=== PATIENT | male | born 1975 | race Two or more races ===

== ENCOUNTER 2024-10-03 14:28 | Emergency (ER) | payer MEDICAID, SELFPAY ==
[2024-10-03 15:12] VITALS: BP 154/90; PULSE 73; RESP 18; TEMP 36.8; O2SAT 96
--- NOTE | 2024-10-03 17:13 | PD.EDRME ---
Rapid Medical Screening Exam E Arrival date/time: 10/03/24 14:28 This is a 48-year-old male that comes with a family member to help with interpretation. Patient only speaks Luxembourgish. Patient comes in with complaints of mass to right buttock around his anus. Patient states that he has had it there for about 3 months and over the last week has been hurting him a lot. It is hard for him to get comfortable and he cannot sit. Patient denies fever, chills, nausea, vomiting, diarrhea. Patient denies past medical history. I have greeted and performed a focused initial assessment of this patient. Initial appropriate labs ordered at this time. A comprehensive ED assessment and evaluation of the patient and analysis of all test and completion of medical decision making process will be conducted by additional ED provider. Chief Complaint: General Adult/Misc Complain Time Seen by Provider: 10/03/24 17:01 Vital signs: Vital Signs Temperature 98.3 F 10/03/24 15:12 Pulse Rate 73 10/03/24 15:12 Respiratory Rate 18 10/03/24 15:12 Blood Pressure 154/90 H 10/03/24 15:12 Pulse Oximetry (%) 96 10/03/24 15:12 Oxygen Delivery Method Room Air 10/03/24 15:12
[2024-10-03 18:12] LABS: Basophils # (Auto) 0.1 Thou/mm3 (0.0-0.2); Basophils % (Auto) 1 % (0-2.5); Eosinophils # (Auto) 0.1 Thou/mm3 (0.0-0.5); Eosinophils % (Auto) 1 % (0-10); Hematocrit 49.2 % (41.0-53.0); Hemoglobin 16.2 g/dL (13.5-16.0); Immature Granulocytes % (Auto) 1 % (0-0); Immature Granulocytes Auto 0.13 Thou/mm3 (0.00-0.00); Lymphocytes # (Auto) 2.7 Thou/mm3 (1.0-4.8); Lymphocytes % (Auto) 23 % (10-50); Mean Corpuscular HGB Conc 32.9 g/dl (31.0-37.0); Mean Corpuscular Hemoglobin 27.4 pg (25.0-35.0); Mean Corpuscular Volume 83 fL (80-100); Monocytes # (Auto) 1.2 Thou/mm3 (0.0-0.8); Monocytes % (Auto) 10 % (0-12); Neutrophils # (Auto) 7.7 Thou/mm3 (1.8-7.7); Neutrophils % (Auto) 65 % (37-80); Nucleated Red Blood Cell % 0 /100 WBC (0); Platelet Count 290 Thou/mm3 (140-440); RDW Standard Deviation 39.7 fL (35.1-43.9); Red Blood Count 5.92 Miln/mm3 (4.50-5.90)
[2024-10-03 18:29] LABS: Alanine Aminotransferase 39 U/L (10-49); Albumin/Globulin Ratio 1.9 (1.2-2.2); Alkaline Phosphatase 82 U/L (46-116); Anion Gap 7 (7-16); Aspartate Amino Transferase 23 U/L (0-34); BUN/Creatinine Ratio 13 Ratio (12-20); Bilirubin,Total 0.4 mg/dL (0.3-1.2); Blood Urea Nitrogen 13 mg/dL (9-23); C-Reactive Protein 1.3 mg/dL (0.0-0.9); Calcium 9.8 mg/dL (8.3-10.6); Calcium (Corrected) 9.8 mg/dL (8.5-10.1); Carbon Dioxide 30.1 mMol/L (20.0-31.0); Chloride 101 mMol/L (98-107); Globulin 2.6 gm/dL (2.3-3.5); Glucose 76 mg/dL (74-106); Osmolality,Calculated 274 (275-295); Potassium 4.6 mMol/L (3.4-5.1); Sodium 138 mMol/L (136-145); Total Protein 7.6 gm/dL (5.7-8.2); eGFR > 60 See Note
[2024-10-03 19:35] VITALS: BP 139/88; PULSE 71; RESP 22; TEMP 36.6; O2SAT 95
--- NOTE | 2024-10-03 21:06 | XR_ITS ---
Examination: CT abdomen and pelvis without contrast. Coronal 3-D reconstructions. Sagittal 2-D reconstructions. Date and time of exam:October 03, 2024 2115 hrs. Indications: Painful venous fever abdominal pain beginning 2 days ago CTDI: vol (mGy): 7.77 DLP: (mGycm): 466 Technique: Axial images of the abdomen have been obtained, 3 mm slice thickness Intravenous contrast material has not been administered. Low dose protocols were performed. One or more of the following dose reduction techniques were used; automated exposure control, adjustment of the mA and/or KV according to patient size, use of iterative reconstruction technique. Findings: No focal liver or splenic lesions No gallstones No pancreatic or adrenal mass No renal or ureteral calculi, no hydronephrosis Aorta normal size Normal appendix No bowel obstruction No diverticulitis Urinary bladder intact No prostatomegaly Posterior right perianal infectious change, 30 x 12 mm, without contrast difficult to assess for abscess Osseous structures are intact Impression: Posterior right perianal infectious change 30 x 12 mm, without contrast difficult to assess for abscess at this site
[2024-10-04 00:34] VITALS: BP 143/82; PULSE 89; RESP 20; TEMP 36.7; O2SAT 93
--- NOTE | 2024-10-04 01:31 | PD.EDADULT ---
ED General RME/HPI General Chief complaint: General Adult/Misc Complain Stated complaint: PAINFUL INTERNAL ANUS PIMPLES ; CAN'T SIT; FEVER Time Seen by Provider: 10/03/24 17:01 Source: patient and family Arrival date/time: 10/03/24 14:28 Limitations: language barrier (Frisian; translation services offered) RME / HPI RME / HPI narrative: 10/03/24 14:28 This is a 48-year-old male that comes with a family member to help with interpretation. Patient only speaks Frisian. Patient comes in with complaints of mass to right buttock around his anus. Patient states that he has had it there for about 3 months and over the last week has been hurting him a lot. It is hard for him to get comfortable and he cannot sit. Patient denies fever, chills, nausea, vomiting, diarrhea. Patient denies past medical history. I have greeted and performed a focused initial assessment of this patient. Initial appropriate labs ordered at this time. A comprehensive ED assessment and evaluation of the patient and analysis of all test and completion of medical decision making process will be conducted by additional ED provider. --- DR. JACK MAIN ED EVALUATION: 48-year-old Frisian-speaking male accompanied by son who presents to the ED for complaints of pain to right inner buttock for the past 3 months, significantly worsening tonight. Patient notes difficulty sitting. He has not sought medical attention prior to this visit. No bloody stools. No fever. No recent weight loss. No medications, past medical history, illnesses. No history of HIV or anal intercourse. Related Data Allergies Allergy/AdvReac Type Severity Reaction Status Date / Time Iodinated Contrast Media Allergy Verified 10/06/24 19:15 Review of Systems Review of Systems Systems Reviewed: All systems reviewed, normal except as documented Past Medical History Social History SMOKING STATUS: Never smoker ED Exam General Limitations: Present language barrier (Frisian; translation services offered) General appearance: Present alert and in no apparent distress Head Head exam: Present atraumatic, normocephalic and normal inspection Eye Eye exam: Present normal appearance, PERRL and EOMI ENT ENT exam: Present normal exam, normal oropharynx, TM's normal bilaterally and normal external ear exam Neck Neck exam: Present normal inspection and full ROM Chest Chest inspection: Present normal inspection and symmetric chest wall rise Respiratory Respiratory exam: Present normal lung sounds bilaterally Cardiovascular Cardiovascular exam: Present regular rate, normal rhythm and normal heart sounds Abdominal Exam Abdominal exam: Present soft and normal bowel sounds Rectal Exam Rectal exam: Present other (There is 1x2cm hardness on right inner buttock, not involving the rectal area. Mild erythema. No pus. Mildly tender.) Extremities Exam Extremities exam: Present normal inspection and full ROM Back Exam Back exam: Present normal inspection and full ROM Neurological Exam Neurological exam: Present alert, oriented X3 and CN II-XII intact Psychiatric Psychiatric exam: Present normal affect and normal mood; Absent depressed Skin Skin exam: Present warm, dry, intact and normal color Course Quality Measures none Orders Category Date Time Status CT abdomen pelvis wo con Stat Exams 10/03/24 21:06 Completed CBC Stat Lab 10/03/24 17:30 Completed CRP [C-Reactive Protein] Stat Lab 10/03/24 17:30 Completed Comprehensive Metabolic Panel Stat Lab 10/03/24 17:30 Completed Clindamycin [Cleocin] Med 10/04/24 01:49 Discontinued 300 mg PO X1 ONE Ibuprofen Tab [Motrin Tab] Med 10/04/24 01:50 Discontinued 600 mg PO X1 ONE Vital Signs Vital signs: Vital Signs Temperature 98.3 F 10/03/24 15:12 Pulse Rate 73 10/03/24 15:12 Respiratory Rate 18 10/03/24 15:12 Blood Pressure 154/90 H 10/03/24 15:12 Pulse Oximetry (%) 96 10/03/24 15:12 Oxygen Delivery Method Room Air 10/03/24 15:12 [facility] Patient data External records reviewed:: [facility] previous records and None Clinical information provided by:: family (Son is translating in Frisian) Social determinants that could affect healthcare access:: none Patient has the following chronic illnesses:: Denies any past medical history, illnesses, current medications How is presenting disease/condition affected by chronic disease/condition?: no chronic disease Evaluation data The following diagnostics were reviewed and interpreted by me:: lab results and radiology exam(s) Lab and/or radiology exams considered but not ordered:: None Interpretation Summary: Examination: CT abdomen and pelvis without contrast. Date and time of exam:October 03, 2024 2115 hrs. Indications: Painful venous fever abdominal pain beginning 2 days ago Findings: No focal liver or splenic lesions No gallstones No pancreatic or adrenal mass No renal or ureteral calculi, no hydronephrosis Aorta normal size Normal appendix No bowel obstruction No diverticulitis Urinary bladder intact No prostatomegaly Posterior right perianal infectious change, 30 x 12 mm, without contrast difficult to assess for abscess Osseous structures are intact Impression: Posterior right perianal infectious change 30 x 12 mm, without contrast difficult to assess for abscess at this site Dictated By: Kevin Solorzano MD Medications Medications considered but not ordered:: None Medication administrations:: Medication Administration History Discontinued Medications Clindamycin HCl (Clindamycin 150 Mg Capsule) 300 mg PO X1 ONE Stop: 10/04/24 01:50 Last Admin: 10/04/24 02:00 Dose: 300 mg Documented By: DEMI Ibuprofen (Ibuprofen Tab 600 Mg Tablet) 600 mg PO X1 ONE Stop: 10/04/24 01:51 Last Admin: 10/04/24 02:01 Dose: 600 mg Documented By: DEMI As above, if any Consultations Consultation(s) initiated? (list below): No Diagnosis Differential Diagnosis ED Complaint MDM: Cellulitis, abscess cyst, rash, Most likely diagnosis given after review of the tests above:: Perianal abscess Admission Indicated Admission indicated?: not indicated Explain why admission is indicated or not indicated:: Patient has no emergent abnormalities in their studies and can be managed on an outpatient basis. Admission Request Was there a request for admission?: No Disposition Plan Disposition Plan: Discharge Discharge Attestation Discharge Attestation: The patient and all family members were given an opportunity to ask questions and understood the discharge instructions. Discharge instructions specifically effects, indications for sooner follow up or return to the emergency department, and the expected course of current diagnosis. Patient condition: Stable Medical Decision Making MDM Narrative MDM Narrative: ? Scribe Attestation: I, Gilda Lancaster, am scribing for and in the presence of Dr. Dahl. Provider Notation: Although this document has been carefully reviewed, there may still be some phonetic and other typographical errors. These errors are purely grammatical due to imperfections in the software program and should not be construed in any way to compromise the substance of the patient's medical care during this visit. Differential Diagnosis Differential Diagnosis: Cellulitis, abscess cyst, rash, Medical Records Medical records reviewed: Yes I reviewed the patient's medical records. Lab Data Lab results reviewed: Yes I reviewed the patient's lab results. 10/03/24 17:30 10/03/24 17:30 Labs: Lab Results 10/03/24 Range/Units 17:30 WBC 12.0 H (3.8-10.6) Thou/mm3 RBC 5.92 H (4.50-5.90) Miln/mm3 Hgb 16.2 H (13.5-16.0) g/dL Hct 49.2 (41.0-53.0) % MCV 83 (80-100) fL MCH 27.4 (25.0-35.0) pg MCHC 32.9 (31.0-37.0) g/dl RDW Std Deviation 39.7 (35.1-43.9) fL Plt Count 290 (140-440) Thou/mm3 Neut % (Auto) 65 (37-80) % Lymph % (Auto) 23 (10-50) % [place] % (Auto) 10 (0-12) % Eos % (Auto) 1 (0-10) % Baso % (Auto) 1 (0-2.5) % Neut # (Auto) 7.7 (1.8-7.7) Thou/mm3 Lymph # (Auto) 2.7 (1.0-4.8) Thou/mm3 [place] # (Auto) 1.2 H (0.0-0.8) Thou/mm3 Eos # (Auto) 0.1 (0.0-0.5) Thou/mm3 Baso # (Auto) 0.1 (0.0-0.2) Thou/mm3 Immature Gran # (Auto) 0.13 H (0.00-0.00) Thou/mm3 Absolute Nucleated RBC 0.00 (0.00-0.00) Thou/mm3 Immature Gran % 1 H (0-0) % Nucleated RBC % 0 (0) /100 WBC Sodium 138 (136-145) mMol/L Potassium 4.6 (3.4-5.1) mMol/L Chloride 101 (98-107) mMol/L Carbon Dioxide 30.1 (20.0-31.0) mMol/L Anion Gap 7 (7-16) BUN 13 (9-23) mg/dL Creatinine 1.0 (0.6-1.3) mg/dL Estim Creat Clear Calc Not Performed. eGFR > 60 (60 - ) See Note BUN/Creatinine Ratio 13 (12-20) Ratio Glucose 76 (74-106) mg/dL Calculated Osmolality 274 L (275-295) Calcium 9.8 (8.3-10.6) mg/dL Corrected Calcium 9.8 (8.5-10.1) mg/dL Total Bilirubin 0.4 (0.3-1.2) mg/dL AST 23 (0-34) U/L ALT 39 (10-49) U/L Alkaline Phosphatase 82 (46-116) U/L C-Reactive Prot, Quant 1.3 H (0.0-0.9) mg/dL Total Protein 7.6 (5.7-8.2) gm/dL Albumin 5.0 (3.5-5.0) gm/dL Globulin 2.6 (2.3-3.5) gm/dL Albumin/Globulin Ratio 1.9 (1.2-2.2) Radiology Data Radiology results reviewed: Yes I reviewed the patient's radiology results. Discharge Plan Plan Patient Disposition: HOME (Self Care) Patient condition on transfer: Stable Prescriptions/Referrals Referrals: Gary Carl MD [Primary Care Provider] - 10/07/24 Problem List Clinical Impression: Perianal abscess Patient/Caregiver Discharge Instructions Education Materials: ED ABSCESS Nubia-Anal Abx only Additional Instructions: 1. Use over the counter Epson salt in the Sitz baths 3-4 times a day for 2 days. Epsom salt sitz bath: Water temperature: 104?F (40?C) Water level: 3?4 in to cover legs Epsom salt ? cup per gallon of water Soak time: 15?20 min Frequency: Up to 3?4 times per day Aftercare: Pat dry with a clean towel, don't rub 2. Use warm compress or heating bad on (low) 20 mins at a time, if needed 3. Take the antibiotcs as prescribed and finish the, 4. You can take Motrin 600 mg or Tylenol 650 mg with food for the next 3 to 4 days. 5. See your primary care physician in the next 48 to 72 hours for recheck. Return to the emergency department sooner for increasing pain, any fever, or any other concerns. If you cannot get into their primary care physician you can return to the emergency department. . Print Language: Frisian Stand Alone Forms: Lu Award Info., Patient Portal Info Letter
[2024-10-04 02:00] VITALS: BP 118/77; PULSE 79; RESP 18; TEMP 36.6; O2SAT 99
[2024-10-04] MEDS: CLINDAMYCIN 150 MG CAPSULE 300 MG PO (02:00)
[2024-10-04] MEDS: IBUPROFEN TAB 600 MG TABLET PO (02:01)
== END 2024-10-04 02:21 | disposition home or self-care (01) ==
PROVIDERS: Nurse Practitioner Family; Emergency Provider Emergency Medicine; PCP Family Medicine
DX: K61.0 Anal abscess (principal)
CPT/HCPCS: 36415; 74176; 80053; 85025; 86140; 99284; A9270

== ENCOUNTER 2024-10-06 19:13 | Emergency (ER) | payer MEDICAID, SELFPAY ==
[2024-10-06 19:13] VITALS: BMI 25.9
[2024-10-06 20:18] VITALS: BP 146/80; PULSE 85; RESP 16; TEMP 36.6; O2SAT 96
--- NOTE | 2024-10-06 20:30 | PD.EDRME ---
Rapid Medical Screening Exam E Arrival date/time: 10/06/24 19:13 48-year-old male presents emergency department complaining of perianal abscess for 3 months. Patient reports recently seen 3 days ago discharged on oral antibiotics per reports abscess has gotten worse and pain is severe. Chief Complaint: Skin/Abscess/Foreign Body Time Seen by Provider: 10/06/24 19:24 Vital signs: Vital Signs Temperature 97.8 F 10/06/24 20:18 Pulse Rate 85 10/06/24 20:18 Respiratory Rate 16 10/06/24 20:18 Blood Pressure 146/80 H 10/06/24 20:18 Pulse Oximetry (%) 96 10/06/24 20:18 Oxygen Delivery Method Room Air 10/06/24 20:18 Vital signs reviewed by provider: Yes
== END 2024-10-06 22:25 | disposition left against medical advice (07) ==
PROVIDERS: Emergency Provider Emergency Medicine; PCP Family Medicine
DX: K61.0 Anal abscess (principal); Z53.29 Procedure and treatment not carried out because of patient's decision for other reasons
CPT/HCPCS: 80053; 83605; 84145; 85025; 87040; 99281

== ENCOUNTER 2024-11-30 12:53 | Outpatient (AMB) | payer MEDICAID, SELFPAY ==
--- NOTE | 2024-11-30 13:14 | GSCOFFNT_ITS ---
Vital Signs - [facility] 11/30/24 13:32 Height 1.7 m Height Method Stated Weight 81.845 kg Weight Measurement Method Standing Scale BMI 28.2 BP 124/79 Blood Pressure Source Automatic Cuff Blood Pressure Location Left Upper Arm Position Sitting Respiration 18 Pulse 80 Pulse Source Monitor Temp 97.2 F Temp Source Temporal Artery Scan Pulse Oximetry (%) 93 L Oxygen Delivery Method Room Air Med/Allergies Allergies & Medications Allergies Iodinated Contrast Media Allergy (Verified 11/30/24 13:33) Medication Reconciliation No Known Home Medications 11/30/24 [History Confirmed 11/30/24] MA Intake Visit Data Collection New Patient or Established: Established Patient (seen at [facility] within 3 years) Seen by Clinical Staff ONLY (RN/MA): No Reason for Visit:: REFERRAL ANAL FISTULA Pain Present Currently: No Language: PA39 PASHTO FROM [facility] Enterostomal Therapy Nurse Required: Yes PCP or OBGYN visit in last 3 months: Yes Hx Now: No Do You Feel Safe at Home: Yes Authorities Contacted: N/A Smoking Status Smoking Status: Never smoker Immunization / Flu Flu Vaccine in the Last 12 Months: No Flu Vaccine Exclusion Criteria: Refused by Patient Past Medical History Social History SMOKING STATUS: Smoking status: Never smoker HPI HPI Narrative 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 Pt reports for the past four months he has had swelling of the right perianal region, which was very painful a couple months ago but improved after he received a course of PO antibiotics. Pt states that when he presses the area he feels air come out of his anus, and it feels similar to a left perianal fistula he had 8 years ago which resolved on its own. At the moment pt states he has no pain and no drainage but does still feel an area of firmness at his right perianal region. He denies any abdominal pain, states he has 1-2 soft BMs per day which do not contain blood and he has no concerns regarding his weight or appetite. He has never had a colonoscopy PMH: HLD PSHx: I&D of left perianal abscess in remote past Meds: None Allergies: Pt states he has an allergy to a strong antibiotic, unsure of name Family hx: No known malignancies Social hx: Nonsmoker ROS Review of Systems Systems Reviewed: All systems reviewed, normal except as documented Objective/Exam General General Appearance: alert, cooperative and well groomed Resp Respiratory exam: Absent respiratory distress Rectal Rectal exam: Present other (at the left posterior perianal region there is a small skin tag which pt states is where he used to have drainage but does not anymore; at the right perianal region there are no skin changes, but pt points to an area at the posterior aspect which is somewhat indurated, but there are no skin changes) Assessment & Plan Diagnosis / Problem List (1) Perianal fistula: Status: Acute Assessment & Plan: 48M with 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 I recommended diagnostic colonoscopy and enumerated the risks including bleeding and perforation; pt prefers to hold off on colonoscopy as he is not concerned about any internal issue. I explained that because there is no skin opening on the right side, there is no surgical intervention I can perform right now but if an opening develops I would recommend seton placement followed by definitive surgery. Pt expressed understanding and will reach out if symptoms progress before his next appt Plan: F/u in 2 months or sooner if needed Office Procedures GNS Level of Care Nursing/Assessment Patient Status: Established Patient Nursing Assessment/Reassesment: Medication Reconciliation, Update PMH in EMR and Vital Signs Coordination of Care: Complex Care and Chronic Disease 1-5, Consent,records obtained, informed consent, Education Simp Pt/Fam, Results/Orders obtained and Staff clarify orders Special Needs: Language special needs (PASHTO) Established Patient Charge Established Patient Point Assignment: 90 Established Patient Point Charge: EP Level 3 (80-115) Patient Portal Questionaires Social History Tobacco History Smoking Status: Never smoker Domestic Abuse History Do You Feel Safe at Home: Yes Review of Systems Report any current symptoms Only answer those that you have currently: Past Medical History Past Medical History Have you ever been diagnosed with any of the following:
[2024-11-30 13:32] VITALS: BP 124/79; PULSE 80; RESP 18; TEMP 36.2; O2SAT 93; BMI 28.2
== END 2024-11-30 14:09 | disposition home or self-care (01) ==
LOC: HODSRG 12:53
PROVIDERS: PCP Family Medicine; Referring Provider Family Medicine; Supervising Provider Surgery; Visit Provider Surgery
DX: Z09 Encounter for follow-up examination after completed treatment for conditions other than malignant neoplasm (principal); Z87.19 Personal history of other diseases of the digestive system
CPT/HCPCS: 99213; G0463

== ENCOUNTER 2025-02-15 13:10 | Outpatient (AMB) | payer MEDICAID, SELFPAY ==
[2025-02-15 13:21] VITALS: BP 125/83; PULSE 84; RESP 20; TEMP 36.7; O2SAT 98; BMI 26.9
--- NOTE | 2025-02-15 13:21 | GSCOFFNT_ITS ---
Vital Signs - [facility] 02/15/25 13:21 Height 1.7 m Height Method Measured Weight 77.734 kg Weight Measurement Method Standing Scale BMI 26.9 BP 125/83 Blood Pressure Source Automatic Cuff Blood Pressure Location Left Upper Arm Position Sitting Respiration 20 Pulse 84 Pulse Source Monitor Temp 98.1 F Temp Source Temporal Artery Scan Pulse Oximetry (%) 98 Oxygen Delivery Method Room Air Med/Allergies Allergies & Medications Allergies Iodinated Contrast Media Allergy (Verified 02/15/25 13:23) Medication Reconciliation Unobtainable 02/15/25 [History Confirmed 02/15/25] MA Intake Visit Data Collection New Patient or Established: Established Patient (seen at [facility] within 3 years) Reason for Visit:: FOLLOW UP ANAL FISUTLA Pain Present Currently: Yes Pain Location: Rectum Pain scale:: 3 Pain Scale Used: Ramirez-Rodriguez/Numerical Track Car Operator Required: Yes PCP or OBGYN visit in last 3 months: Yes Smoking Status Smoking Status: Never smoker Immunization / Flu Flu Vaccine in the Last 12 Months: No Flu Vaccine Exclusion Criteria: Refused by Patient Past Medical History Social History SMOKING STATUS: Smoking status: Never smoker ALCOHOL: Alcohol Intake: Former HPI HPI Narrative 49 year old male here for follow up of perianal fistula. Translation via patient's nephew who is present at today's visit. Patient reports that his symptoms have been stable since his last visit. He still has some swelling of the right perianal region, but denies any drainage from the area. He reports on and off pain and he also still feels an area of firmness at the right perianal region. He has 1-2 soft BMs daily which do not contain blood. He has never had a colonoscopy. Patient has a history of left perianal fistula which he had 8 years ago and resolved on its own. PMH: HLD PSHx: I&D of left perianal abscess in remote past Meds: None Allergies: Denies Family hx: No known malignancies Social hx: Nonsmoker ROS Review of Systems Systems Reviewed: All systems reviewed, normal except as documented Objective/Exam General General Appearance: alert, comfortable and cooperative Resp Respiratory exam: Absent respiratory distress Assessment & Plan Diagnosis / Problem List (1) Perianal fistula: Status: Acute Assessment & Plan: 49 year old male with history of left perianal fistula in past which self- resolved, presenting with symptoms of a right perianal fistual which seems to have healed on its own as well. His symptoms have been stable since his last office visit. Reports some swelling/firmness and on and off pain but denies drainage. Recommended diagnostic colonoscopy and enumerated the risks including bleeding and perforation. Patient understands and agrees with plan for colonoscopy. However, he states that for now he does not want polypectomy or any biopsies taken during colonoscopy, and would like more information prior to colonoscopy. Provided patient with patient education on colonoscopy and colon polyp removal. Discussed conservative management vs surgical option. Explained that surgical treatment of perianal fistula is done in two stages, first with seton placement followed by either fistulotomy or LIFT once drainage decreases. Patient opts to defer surgical treatment at this time. Patient will be scheduled for colonoscopy and follow up in February. Office Procedures GNS Level of Care Nursing/Assessment Patient Status: Established Patient Nursing Assessment/Reassesment: Update PMH in EMR and Vital Signs Coordination of Care: Complex Care/Chronic Disease 5 or more, Education Complex Pt/Fam, Consent,records obtained, informed consent, Results/Orders obtained and Staff clarify orders Established Patient Charge Established Patient Point Assignment: 100 Established Patient Point Charge: EP Level 3 (80-115) Patient Portal Questionaires Social History Tobacco History Smoking Status: Never smoker Alcohol History Alcohol Intake: Former Review of Systems Report any current symptoms Only answer those that you have currently: Past Medical History Past Medical History Have you ever been diagnosed with any of the following:
== END 2025-02-15 14:05 | disposition home or self-care (01) ==
LOC: HODSRG 13:10
PROVIDERS: PCP Family Medicine; Referring Provider Family Medicine; Supervising Provider Surgery; Visit Provider Surgery
DX: K60.30 Anal fistula, unspecified (principal)
CPT/HCPCS: 99213; G0463

== ENCOUNTER 2025-06-30 14:47 | Emergency (ER) | payer MEDICAID, SELFPAY ==
[2025-06-30 15:05] VITALS: BP 156/82; PULSE 84; RESP 20; TEMP 37.1; O2SAT 95; BMI 25.9
--- NOTE | 2025-06-30 15:24 | XR_ITS ---
Examination: CT abdomen and pelvis without contrast. Coronal 3-D reconstructions. Sagittal 2-D reconstructions. Date and time of exam:June 30, 2025, 1543 hrs. Indications: Right-sided flank pain and nausea today CTDI: vol (mGy): 7.27 DLP: (mGycm): 462 Technique: Axial images of the abdomen have been obtained, 3 mm slice thickness Intravenous contrast material has not been administered. Low dose protocols were performed. One or more of the following dose reduction techniques were used; automated exposure control, adjustment of the mA and/or KV according to patient size, use of iterative reconstruction technique. Findings: Nodular parenchymal disease in the right middle lobe Liver is mildly irregular contour Contracted gallbladder. Spleen is not enlarged No pancreatic or adrenal mass. Mild to moderate right hydronephrosis 4 mm distal right ureteral calculus Aorta normal size Normal appendix No bowel obstruction Contracted urinary bladder No significant prostatomegaly Impression: Mild to moderate right hydronephrosis secondary to 4 mm distal right ureteral calculus
--- NOTE | 2025-06-30 15:28 | PD.EDBACK ---
ED Back Injury Pain RME/HPI General Chief Complaint: Back Pain/Injury Stated Complaint: RIGHT FLANK/ABD PAIN, DIFFICULTY URINATING Time Seen by Provider: 06/30/25 14:55 Arrival date/time: 06/30/25 14:47 RME / HPI RME / HPI Narrative: 49-year-old male patient who came in for evaluation regarding right flank pain. Onset of symptoms since last night as right flank pain, described as sharp pain, radiating to the right lower abdomen. Severity of symptoms moderate. Patient is also complaining of urinary urgency. Denies any hematuria. Denies any fever. Denies any vomiting with complaint of nausea. Patient has significant history of kidney stone in the past 7 years ago patient had lithotripsy. Back in the [facility]. Related Data Previous Rx's ?Medication ?Instructions ?Recorded ibuprofen 800 mg tablet 800 mg PO Q8H PRN pain #30 tabs 06/30/25 tamsulosin 0.4 mg capsule (Flomax) 0.4 mg PO QDAY #14 caps 06/30/25 Allergies Allergy/AdvReac Type Severity Reaction Status Date / Time Iodinated Contrast Media Allergy Verified 02/15/25 13:23 Review of Systems Review of Systems Narrative Review of Systems: Review of system reviewed and within normal limits except mentioned in HPI ED Exam Narrative Physical exam: VITAL SIGNS: Reviewed. GENERAL APPEARANCE: Alert and interactive, follows commands, no acute distress, HEAD AND FACE: Non-traumatic. ENT: PERRL, pink conjunctivitis, eyelid no trauma, Mucous membrane moist. NECK: Supple, nontender, no nuchal rigidity. CHEST: No tenderness, no crepitus, no paradoxical movement, no retractions. LUNGS: Clear, well ventilated, symmetric, no rales, no wheezing, no ronchi, no stridor, good breath sounds bilaterally. HEART: Regular rate, regular rhythm, no murmur, no gallops. ABDOMEN: Soft, positive bowel sounds, nondistended, no guarding, no rebound, no masses, right flank tenderness, right lower abdominal tenderness RECTAL: Deferred. GENITAL: Deferred. NEUROLOGICAL: Gross motor function intact sensory function intact, Appropriate for age. MUSCULOSKELETAL: low back nontender, full range of motion. EXTREMITIES: Nontender, full range of motion. SKIN: Color pink, dry, no rash, no lacerations, no abrasions, no contusions. LYMPHATICS: Deferred. Course Quality Measures none Orders Category Date Time Status CT abdomen pelvis wo con Stat Exams 06/30/25 15:24 Completed CBC Stat Lab 06/30/25 15:35 Completed Comprehensive Metabolic Panel Stat Lab 06/30/25 15:35 Completed Lipase Stat Lab 06/30/25 15:35 Completed Partial Thromboplastin Time Stat Lab 06/30/25 15:35 Completed Urinalysis, C/S if Indicated Stat Lab 06/30/25 16:04 Completed Ketorolac Inj [Toradol Inj] Med 06/30/25 15:24 Discontinued 30 mg IVP X1 ONE Ondansetron Odt [Zofran Odt] Med 06/30/25 15:24 Discontinued 4 mg PO X1 ONE Sodium Chloride 0.9% 1000 ml [Ns] 1,000 ml Med 06/30/25 15:25 Discontinued IV 999 mls/hr Tamsulosin HCl [Flomax] Med 06/30/25 15:25 Discontinued 0.4 mg PO X1 ONE Vital Signs Vital signs: Vital Signs Temperature 98.7 F 06/30/25 15:05 Pulse Rate 84 06/30/25 15:05 Respiratory Rate 20 06/30/25 15:05 Blood Pressure 156/82 H 06/30/25 15:05 Pulse Oximetry (%) 95 06/30/25 15:05 Oxygen Delivery Method Room Air 06/30/25 15:05 Back Pain / Injury MDM Narrative MDM Narrative:: 49-year-old male patient who came in for evaluation regarding right flank pain. Onset of symptoms since last night as right flank pain, described as sharp pain, radiating to the right lower abdomen. Severity of symptoms moderate. Patient is also complaining of urinary urgency. Denies any hematuria. Denies any fever. Denies any vomiting with complaint of nausea. Patient has significant history of kidney stone in the past 7 years ago patient had lithotripsy. Back in the [facility]. Laboratory workup all came back unremarkable except for ureterolithiasis, 4 mm right. Prior to discharge patient is not having any pain, patient stable for discharge home Patient data External records reviewed:: None Clinical information provided by:: patient and family Social determinants that could affect healthcare access:: none Patient has the following chronic illnesses:: None How is presenting disease/condition affected by chronic disease/condition?: no chronic disease Evaluation data The following diagnostics were reviewed and interpreted by me:: lab results and radiology exam(s) Lab and/or radiology exams considered but not ordered:: None Interpretation Summary: See results MDM Medications / Prescriptions Medications or Prescriptions considered but not ordered:: None Medication administrations:: Medication Administration History Discontinued Medications Sodium Chloride (Ns) 1,000 mls @ 999 mls/hr IV .Q1H1M ONE Stop: 06/30/25 16:25 Last Infusion: 06/30/25 17:58 Dose: Infused Documented By: Admin: 06/30/25 17:00 Dose: 999 mls/hr Documented By: RANJEET Ketorolac Tromethamine (Ketorolac Inj 30 Mg/Ml Vial) 30 mg IVP X1 ONE Stop: 06/30/25 15:25 Last Admin: 06/30/25 16:57 Dose: 30 mg Documented By: RANJEET Ondansetron HCl (Ondansetron Odt 4 Mg Tabrap) 4 mg PO X1 ONE; Protocol Stop: 06/30/25 15:25 Last Admin: 06/30/25 15:31 Dose: 4 mg Documented By: BJORN Tamsulosin HCl (Tamsulosin Hcl 0.4 Mg Capsule) 0.4 mg PO X1 ONE Stop: 06/30/25 15:26 Last Admin: 06/30/25 15:31 Dose: 0.4 mg Documented By: BJORN Flomax, Zofran, Toradol and IV fluids Consultations Consultation(s) initiated? (list below): No Diagnosis Differential diagnosis back pain/injury: renal colic and pyelonephritis Most likely diagnosis given after review of the tests above:: Ureterolithiasis Admission Indicated Admission indicated?: not indicated Admission Request Was there a request for admission?: No Disposition Plan Disposition Plan: Discharge Discharge Attestation Discharge Attestation: The patient and all family members were given an opportunity to ask questions and understood the discharge instructions. Discharge instructions specifically effects, indications for sooner follow up or return to the emergency department, and the expected course of current diagnosis. Patient condition: Stable Discharge Plan Plan Patient Disposition: HOME (Self Care) Discharge Disposition comment: Stable Prescriptions/Referrals Prescriptions/Med Rec: New tamsulosin [Flomax] 0.4 mg capsule 0.4 mg PO QDAY Qty: 14 0RF ibuprofen 800 mg tablet 800 mg PO Q8H PRN (Reason: pain) Qty: 30 0RF Referrals: Gary Carl MD [Primary Care Provider, Family Practice] - In 1 week Problem List Clinical Impression: Ureterolithiasis Patient/Caregiver Discharge Instructions Discharge Activity: activity as tolerated Education Materials: Identifying Kidney Stones Additional Instructions: Thank you for the opportunity for serving you today. You are stable for discharged . You are advised to: Follow-up with your PCP in 1 to 2 days and asked for referral to urologist Return to ED for worsening of symptoms Increase oral fluids Take medication as prescribed Strain urine and collect the stone and save it for your urologist visit Print Language: Albanian Stand Alone Forms: Lu Award Info., Patient Portal Info Letter PA/ONLINE USER EXPERIENCE STRATEGIST Supervising Physician PA/ONLINE USER EXPERIENCE STRATEGIST Supervising Physician: MD Alfonzo
[2025-06-30] MEDS: TAMSULOSIN HCL 0.4 MG CAPSULE PO (15:31)
[2025-06-30] MEDS: ONDANSETRON ODT 4 MG TABRAP PO (15:31)
[2025-06-30 15:53] LABS: Basophils # (Auto) 0.1 Thou/mm3 (0.0-0.2); Basophils % (Auto) 0 % (0-2.5); Eosinophils # (Auto) 0.0 Thou/mm3 (0.0-0.5); Eosinophils % (Auto) 0 % (0-10); Hematocrit 48.7 % (41.0-53.0); Hemoglobin 16.4 g/dL (13.5-16.0); Immature Granulocytes Auto 0.05 Thou/mm3 (0.00-0.00); Lymphocytes # (Auto) 2.3 Thou/mm3 (1.0-4.8); Lymphocytes % (Auto) 16 % (10-50); Mean Corpuscular HGB Conc 33.7 g/dl (31.0-37.0); Mean Corpuscular Hemoglobin 28.1 pg (25.0-35.0); Mean Corpuscular Volume 84 fL (80-100); Monocytes # (Auto) 1.6 Thou/mm3 (0.0-0.8); Monocytes % (Auto) 12 % (0-12); Neutrophils # (Auto) 10.1 Thou/mm3 (1.8-7.7); Neutrophils % (Auto) 71 % (37-80); Nucleated Red Blood Cell # 0.00 Thou/mm3 (0.00-0.00); Nucleated Red Blood Cell % 0 /100 WBC (0); Platelet Count 254 Thou/mm3 (140-440); RDW Standard Deviation 38.6 fL (35.1-43.9); Red Blood Count 5.83 Miln/mm3 (4.50-5.90); White Blood Count 14.2 Thou/mm3 (3.8-10.6)
[2025-06-30 16:09] LABS: Partial Thromboplastin Time 40.0 Seconds (22.0-36.0)
[2025-06-30 16:14] VITALS: BP 140/82; PULSE 64; RESP 16; TEMP 36.8; O2SAT 97
[2025-06-30 16:16] LABS: Alanine Aminotransferase 29 U/L (10-49); Albumin, Serum 4.9 gm/dL (3.5-5.0); Albumin/Globulin Ratio 2.0 (1.2-2.2); Alkaline Phosphatase 76 U/L (46-116); Anion Gap 10 (7-16); Aspartate Amino Transferase 22 U/L (0-34); BUN/Creatinine Ratio 11 Ratio (12-20); Bilirubin,Total 0.8 mg/dL (0.3-1.2); Blood Urea Nitrogen 13 mg/dL (9-23); Calcium 10.1 mg/dL (8.3-10.6); Calcium (Corrected) 10.1 mg/dL (8.5-10.1); Carbon Dioxide 29.6 mMol/L (20.0-31.0); Chloride 100 mMol/L (98-107); Creatinine (Component) 1.2 mg/dL (0.6-1.3); Estimated Creatinine Clearance 75.3 mL/min (>60); Globulin 2.5 gm/dL (2.3-3.5); Glucose 102 mg/dL (74-106); Lipase 30 U/L (12-53); Osmolality,Calculated 279 (275-295); Potassium 3.8 mMol/L (3.4-5.1); Sodium 140 mMol/L (136-145); Total Protein 7.4 gm/dL (5.7-8.2); eGFR > 60 See Note
[2025-06-30 16:20] VITALS: BP 140/82; PULSE 65; RESP 16; TEMP 36.8; O2SAT 96
[2025-06-30 16:50] LABS: Collection Type, Urine Clean Catch
[2025-06-30] MEDS: KETOROLAC INJ 30 MG/ML VIAL IVP (16:57)
[2025-06-30] MEDS: SODIUM CHLORIDE 0.9% 1000 ML 1,000 ML 999 ML IV (17:00)
[2025-06-30 17:22] LABS: Bacteria,Urine Rare; Bilirubin,Urine Negative (Negative); Blood,Urine 1+ (Negative); Clarity,Urine Clear (Clear/Hazy); Color,Urine Lt-Yellow (Lt Yel-Yel); Culture Indicated,Urine Not Indicated; Glucose, Urine Negative (Negative); Ketones,Urine Negative (Negative); Leukocyte Esterase,Urine Positive (Negative); Nitrite,Urine Negative (Negative); PH,Urine 6.0 (5.0-7.0); Protein,Urine Negative (Neg - Trace); RBC,Urine 1 /hpf (0-3); Specific Gravity,Urine 1.014 (1.001-1.035); Squamous Epithelial Cell,Urine < 1 /hpf (0-5); Urobilinogen,Urine Negative mg/dL (0.0-1.0); WBC,Urine 4 /hpf (0-5)
[2025-06-30 18:02] VITALS: BP 113/73; PULSE 70; RESP 15; TEMP 36.9; O2SAT 96
[2025-06-30 18:03] VITALS: BP 113/73; PULSE 71; RESP 15; TEMP 36.9; O2SAT 96
== END 2025-06-30 18:15 | disposition home or self-care (01) ==
PROVIDERS: Nurse Practitioner Family; Emergency Provider Family Medicine; PCP Family Medicine
DX: N20.1 Calculus of ureter (principal); Z87.442 Personal history of urinary calculi
CPT/HCPCS: 36415; 74176; 80053; 81001; 83690; 85025; 85730; 96361; 96374; 99284; J1885; J7030; Q0162; A9270

== ENCOUNTER 2025-09-27 11:46 | Emergency (ER) | payer MEDICAID, SELFPAY ==
[2025-09-27 11:59] VITALS: BP 145/81; PULSE 91; RESP 16; TEMP 36.9; O2SAT 100
--- NOTE | 2025-09-27 12:15 | EDNOTE_ITS ---
ED General RME/HPI General Chief complaint: Wound Recheck / Suture Removal Stated complaint: WOUND ON R) BUTTOCK, BLOOD CAME OUT Time Seen by Provider: 09/27/25 12:14 Arrival date/time: 09/27/25 11:46 CC: Bleeding from an open site on his right buttock. Localized pain HPI ongoing for the past 1 day. Denies fever chills chest pain shortness of breath or difficulty breathing. Related Data Previous Rx's ?Medication ?Instructions ?Recorded ibuprofen 800 mg tablet 800 mg PO Q8H PRN pain #30 t abs 06/30/25 tamsulosin 0.4 mg capsule (Flomax) 0.4 mg PO QDAY #14 caps 06/30/25 sulfamethoxazole 800 1 tab PO BID 7 days #14 tabs 09/27/25 mg-trimethoprim 160 mg tablet (Bactrim DS) Allergies Allergy/AdvReac Type Severity Reaction Status Date / Time Iodinated Contrast Media Allergy Verified 09/27/25 11:50 Review of Systems Review of Systems Narrative Review of Systems: GEN: No fever, no chills, no weight loss EYES: No discharge, no visual changes, no pain HEENT: No ear pain, no congestion, no sore throat PULM: No shortness of breath, no cough, no congestion CV: No chest pain, no dyspnea on exertion, no palpitations GI: No nausea, no vomiting, no diarrhea, no pain, no constipation : No frequency, no urgency, no dysuria MUSC/SKEL: No joint pain, no back pain SKIN: No rash PSYCH: No hallucinations, no depression HEME/LYMPH: No easy bleeding or bruising tendencies NEURO: No weakness, no headache Past Medical History Past Medical History CARDIAC: Positive Hypercholesterolemia; Negative Congestive Heart Failure RESPIRATORY: Negative Chronic Obstructive Pulmonary Disease (COPD) GENITOURINARY: Negative Renal Disease ENDOCRINE: Negative Diabetes Mellitus Type 1 or Diabetes Mellitus Type 2 Surgical History SURGICAL: Positive Nose Surgery Social History SMOKING STATUS: Never smoker ED Exam Narrative Physical exam: [General: Not in any acute distress Head normocephalic HEENT: Within acceptable limits Neck is supple nontender Chest equal chest rise nontender to palpation Respiratory: Clear to auscultation no wheezes crackles or rubs CV: Rate rhythm is regular no murmurs rubs or clicks Abdomen is soft nontender no masses positive bowel sounds all 4 quadrants Back: No CVA tenderness no spinous process tenderness from cervical spine thoracic and lumbar spine Skin: Right buttock: 1 cm perfectly circular open region with a small amount of tissue extruding from there is also small amount of exudate expressed from the site. No surrounding erythema or edema no streaking no firmness or mass palpated underlying this open ulcerated area. Otherwise skin is intact no petechiae rash induration ulceration or crepitus Extremities: Moving all extremity against resistance cap refill less than 2 seconds neurosensory intact Neuro: Awake alert oriented x3 Glascow coma 15 no focal deficits] Course Course Course Narrative: Question is whether this is an early abscess or mass, I cannot palpate anything underneath it. The patient will be started on antibiotics and follow-up with his PCP. Quality Measures none Vital Signs Vital signs: Vital Signs Temperature 98.4 F 09/27/25 11:59 Pulse Rate 91 09/27/25 11:59 Respiratory Rate 16 09/27/25 11:59 Blood Pressure 145/81 H 09/27/25 11:59 Pulse Oximetry (%) 100 09/27/25 11:59 Oxygen Delivery Method Room Air 09/27/25 11:59 Discharge Plan Plan Patient Disposition: HOME (Self Care) Patient condition on transfer: Stable Prescriptions/Referrals Prescriptions/Med Rec: New sulfamethoxazole-trimethoprim [Bactrim DS] 800-160 mg tablet 1 tab PO BID 7 Days Qty: 14 0RF No Action tamsulosin [Flomax] 0.4 mg capsule 0.4 mg PO QDAY Qty: 14 0RF ibuprofen 800 mg tablet 800 mg PO Q8H PRN (Reason: pain) Qty: 30 0RF Referrals: Gary Carl MD [Physician, Family Practice] - In 1 week Problem List Clinical Impression: Abscess of buttock, right Patient/Caregiver Discharge Instructions Education Materials: ED Abscess Antibiotic ... Additional Instructions: Take the medication as prescribed, keep the site clean and dry and follow-up with Dr. Carl as stated if there is a worsening of symptoms return to the emergency room for reevaluation. Print Language: Czech Stand Alone Forms: Lu Award Info., Patient Portal Info Letter, Work/School Release PA/LUIS Supervising Physician PA/METER READING CLERK Supervising Physician: Sudeep Gaspar ENP
== END 2025-09-27 12:34 | disposition home or self-care (01) ==
LOC: SERX 12:19
PROVIDERS: Emergency Provider Nurse Practitioner Family; PCP Family Medicine
DX: L02.31 Cutaneous abscess of buttock (principal)
CPT/HCPCS: 99281